=== PATIENT | male | born 1995 | race Caucasian/White ===

== ENCOUNTER 2024-11-02 14:21 | Emergency (ER) | payer BC, SELFPAY ==
[2024-11-02 15:04] VITALS: BP 140/81; PULSE 78; RESP 18; TEMP 36.7; O2SAT 97; BMI 32.5
[2024-11-02] MEDS: KETOROLAC 30 MG/ML VIAL IM (18:35)
[2024-11-02 18:45] VITALS: BP 145/79; PULSE 85; RESP 18; TEMP 37; O2SAT 100
--- NOTE | 2024-11-02 18:46 | ED.BACK ---
HPI - Back Pain/Injury <Sabrina Diana PA-C - Last Filed: 11/02/24 18:51> General Chief Complaint: Back Pain/Injury Stated Complaint: back pain [id number] Time Seen by Provider: 11/02/24 17:16 Source: patient History of Present Illness HPI Narrative: 29-year-old male presents to the ED with 2 weeks of lower back pain. Patient states that he did is hard work out, helped with the move, following which his lower back was increasingly painful and was going into spasms. Patient denies any overt trauma. No fever, chills, urinary hesitancy, numbness, tingling, weakness, saddle paresthesias. Patient is a director of plant operations. Patient states he had 3 chiropractic adjustments last week, felt his back pain was worsening after it. Related Data Previous Rx's Medication Instructions Recorded dextroamphetamine-amphetamine ER 20 mg PO QDAY #30 caps 10/12/18 20 mg 24hr capsule,extend release (Adderall XR) cyclobenzaprine 10 mg tablet 10 mg PO TID PRN muscle spasm 5 11/02/24 days #15 tabs Allergies Allergy/AdvReac Type Severity Reaction Status Date / Time No Known Allergies Allergy Uncoded 01/21/18 11:58 Review of Systems <Sabrina Diana PA-C - Last Filed: 11/02/24 18:51> Constitutional Constitutional: Denies chills, Denies fatigue, Denies fever(s), Denies frequent falls, Denies lethargy and Denies weakness Eyes Eyes: Denies change in vision, Denies eye discharge, Denies irritation and Denies loss of vision ENT Ears, Nose, Mouth, and Throat: Denies change in voice, Denies dizziness, Denies neck pain, Denies sore throat and Denies throat swelling Cardiovascular Cardiovascular: Denies chest pain, Denies irregular heart rhythm, Denies lightheadedness, Denies palpitations, Denies dyspnea, Denies dyspnea on exertion and Denies orthopnea Respiratory Respiratory: Denies cough, Denies dyspnea, Denies dyspnea on exertion and Denies wheezing Gastrointestinal Gastrointestinal: Denies abdominal pain, Denies change in bowel habits, Denies diarrhea, Denies nausea and Denies vomiting Musculoskeletal Musculoskeletal: Reports back pain, Denies neck pain and Denies numbness Integumentary/Breasts Skin/Breast: Denies pruritus, Denies erythema, Denies rash and Denies wounds Neurologic Neurologic: Denies behavioral changes, Denies confusion, Denies dizziness, Denies frequent falls, Denies loss of vision, Denies numbness and Denies weakness Psychiatric Psychiatric: Denies anxiety, Denies behavioral changes, Denies confusion, Denies depression, Denies homicidal ideation and Denies suicidal ideation Endocrine Endocrine: Denies fatigue, Denies flushing and Denies palpitations Hematologic/Lymphatic Hematologic/Lymphatic: Denies easy bruising Allergic/Immunologic Allergic/Immunologic: Denies urticaria, Denies throat swelling and Denies wheezing Patient History <Sabrina Diana PA-C - Last Filed: 11/02/24 18:51> Social History Smoking Status: Never smoker alcohol intake: never Smoking Status: Never smoker Exam <Sabrina Diana PA-C - Last Filed: 11/02/24 18:51> Narrative Exam Narrative: Const General:?cooperative, healthy appearing and comfortable [facility] Head:?normal to inspection Ears:?hearing grossly normal bilaterally Nose:?external nose normal Face and sinus:?normal facial exam and sinuses nontender Mouth:?oral mucosae normal Throat:?posterior oropharynx normal Eyes General:?appearance normal, both eyes and all related structures Neck Neck:?normal visual inspection and no lymphadenopathy noted Resp Effort & Inspection:?normal respiratory effort Auscultation:?clear to auscultation bilaterally Cardio Rate:?regular rate Rhythm:?regular rhythm Musculoskeletal No midline tenderness to palpation. There is some paraspinal tenderness to palpation. Strength and sensation is intact. There is full range of motion. Patient is able to walk normally. Patient is neurovascularly intact. Neuro General:?patient alert, patient awake and patient oriented x3 Initial Vital Signs Initial Vital Signs: Vital Signs Temperature 98.1 F 11/02/24 15:04 Pulse Rate 78 11/02/24 15:04 Respiratory Rate 18 11/02/24 15:04 Blood Pressure 140/81 11/02/24 15:04 Pulse Oximetry 97 11/02/24 15:04 Oxygen Delivery Method Room Air 11/02/24 15:04 <Daniele Maza MD - Last Filed: 11/03/24 07:35> Initial Vital Signs Initial Vital Signs: Vital Signs Temperature 98.1 F 11/02/24 15:04 Pulse Rate 78 11/02/24 15:04 Respiratory Rate 18 11/02/24 15:04 Blood Pressure 140/81 11/02/24 15:04 Pulse Oximetry 97 11/02/24 15:04 Oxygen Delivery Method Room Air 11/02/24 15:04 Course <Sabrina Diana PA-C - Last Filed: 11/02/24 18:51> Orders Ordered: Discontinued Medications Ketorolac Tromethamine (Ketorolac 30 Mg/Ml Vial) 30 mg IM NOW ONE Stop: 11/02/24 18:31 Last Admin: 11/02/24 18:35 Dose: 30 mg Documented By: MPO Vital Signs Vital signs: Vital Signs - 8 hr 11/02/24 15:04 11/02/24 18:45 Temperature 98.1 F 98.6 F Pulse Rate 78 85 Respiratory Rate 18 18 Blood Pressure 140/81 145/79 H Pulse Oximetry 97 100 Oxygen Delivery Method Room Air Room Air <Daniele Maza MD - Last Filed: 11/03/24 07:35> Orders Ordered: Discontinued Medications Ketorolac Tromethamine (Ketorolac 30 Mg/Ml Vial) 30 mg IM NOW ONE Stop: 11/02/24 18:31 Last Admin: 11/02/24 18:35 Dose: 30 mg Documented By: MPO Vital Signs Vital signs: Vital Signs - 8 hr 11/02/24 15:04 11/02/24 18:45 Temperature 98.1 F 98.6 F Pulse Rate 78 85 Respiratory Rate 18 18 Blood Pressure 140/81 145/79 H Pulse Oximetry 97 100 Oxygen Delivery Method Room Air Room Air MDM - Back Pain/Injury <Sabrina Diana PA-C - Last Filed: 11/02/24 18:51> MDM Narrative Medical decision making narrative: 29-year-old male presents to the ED with 2 weeks of lower back pain. Physical exam is reassuring for no midline tenderness to palpation. No trauma. No indication for imaging at this time. Recommend muscle relaxants, ibuprofen, lidocaine patches, heat/ice, rest. Recommend refraining from any chiropractic adjustments until the acute injury has calm down. Recommend follow-up with PCP in a few days if symptoms do not improve. ED return precautions were discussed with patient. Patient verbalized understanding. Medical records reviewed: Yes Discharge Plan Departure Patient Disposition: Home Clinical Impression: Strain of lumbar region Qualifiers: Encounter type: initial encounter Qualified Code(s): S39.012A - Strain of muscle, fascia and tendon of lower back, initial encounter Instructions: DI for Back Strain or Sprain Activity Restrictions/Additional Instructions: You were evaluated in the ED today for lower back pain. Your symptoms are likely due to a musculoskeletal sprain/strain versus disc injury. It is recommended to calm down the inflammation and swelling due to the injury with ibuprofen, lidocaine patches, heat/ice, rest, muscle relaxants. You are being prescribed muscle relaxants. These might make you sleepy, therefore please refrain from taking them when driving or operating machinery. Please follow-up with your PCP as soon as possible. Return to the ED if you have worsening symptoms, numbness, tingling, weakness, urinary symptoms. Prescriptions: New cyclobenzaprine 10 mg tablet 10 mg PO TID PRN (Reason: muscle spasm) 5 Days Qty: 15 0RF No Action dextroamphetamine-amphetamine [Adderall XR] 20 mg capsule,extended release 24hr 20 mg PO QDAY Qty: 30 0RF Rx Instructions: Take one capsule by mouth once a day. Stand Alone Forms: Patient Portal/API/Survey, Work Release Note ED Sign-out <Daniele Maza MD - Last Filed: 11/03/24 07:35> Cosign ED Attending Cosignature Attestation: I was immediately available in the department for consultation. ?This documentation has been reviewed and I agree with assessment and plan. Supervised by Daniele Maza MD
== END 2024-11-02 18:46 | disposition home or self-care (01) ==
PROVIDERS: Emergency Provider Student in an Organized Health Care Education/Training Program
DX: S39.012A Strain of muscle, fascia and tendon of lower back, initial encounter (principal)
CPT/HCPCS: 96372; 99283; J1885